=== PATIENT | male | born 1990 | race Caucasian/White ===

== ENCOUNTER 2024-03-30 09:35 | Outpatient (CLI) | payer BC, SELFPAY ==
--- NOTE | 2024-03-30 08:45 | DI.RAD_ITS ---
Exam(s) XR TIB/FIB RT XR KNEE RT 2V AP,LAT EXAM: XR KNEE RT 2V AP,LAT and XR tib/fib RT CLINICAL HISTORY: RIGHT KNEE PAIN. TECHNIQUE: 2D digital imaging was performed of the right tib/fib and knee. Four views obtained. AP and lateral views were obtained. COMPARISON: CR XR KNEE 3 VIEWS RIGHT from 07/13/2023 CR XR TIBIA FIBULA RIGHT (GENERIC) from 07/13/2023 FINDINGS: BONES: There is again seen an intramedullary krzysztof transfixing the fracture of the right tibia. No fra cture line is visualized. The fracture of the right fibula is unchanged. No bridging callus formati on is present. No new fractures identified. No bony destructive lesion is seen. JOINTS: The knee is normally aligned. No joint effusion is seen. SOFT TISSUE: Normal. IMPRESSION: Stable appearance of the right tibial and fibular fractures. No new fractures identified. DATA REPOSITORY: RADIATION DOSE DELIVERED:
== END 2024-03-30 09:36 | disposition home or self-care (01) ==
LOC: DIORS 09:36
PROVIDERS: PCP Nurse Practitioner Family; Visit Provider Student in an Organized Health Care Education/Training Program
DX: M22.2X1 Patellofemoral disorders, right knee (principal); M25.561 Pain in right knee
CPT/HCPCS: 73560; 73590